=== PATIENT | female | born 1960 | race Caucasian/White ===

== ENCOUNTER → 2018-04-21 16:11 | Outpatient (CLI) | payer OTHER, SELFPAY ==
--- NOTE | 2018-04-21 16:14 | DI.MRI.S_ITS ---
PROCEDURE: MRFOOT LT WO CON INDICATIONS: LEFT FOOT AND BIG TOE PAIN TECHNIQUE: Noncontrast sagittal T1 spin echo and T2 fast spin echo with fat saturation, long-axis T1 spin echo and T2 fast spin echo with fat saturation, short-axis T1 spin echo and T2 fast spin echo with fat saturation through the forefoot. COMPARISON: None. FINDINGS: Image quality: Excellent. Bones and joints: No bone marrow contusions or metatarsal stress fractures. The sesamoid bones appear in expected positions, without internal edema. Mild first MTP joint degeneration. Fluid is seen between the second and fourth metatarsal heads, as well as the second and third metatarsal heads to a lesser extent. There is mild second TMT joint degeneration Soft tissues: The visualized plantar foot muscles demonstrate normal signal and bulk. Visualized flexor and extensor tendons appear intact, without tenosynovitis. The distal insertions of the peroneus brevis and longus tendons appear intact. The principal Lisfranc ligament appears intact. There is ill-defined T2 hyperintensity/fluid or edema involving the plantar subcutaneous soft tissues at the level of the hallux sesamoids. IMPRESSION: Plantar subcutaneous soft tissue fluid versus edema raising the possibility of adventitial bursitis, superficial and adjacent to the hallux sesamoids (which themselves demonstrate normal signal). Fluid between the third and fourth, and to a lesser extent second and third, metatarsal heads raising possibility of intermetatarsal bursitis. Please correlate clinically. Mild first MTP joint degeneration. Dictated by: Dwight Negron M.D. on 04/22/2018 at 9:48 Approved by: Dwight Negron M.D. on 04/22/2018 at 10:01
--- NOTE | 2018-04-21 16:14 | DI.MRI.S_ITS ---
PROCEDURE: MR ANKLE LT WO CON INDICATIONS: LATERAL LEFT ANKLE PAIN AND SWELLING TECHNIQUE: Noncontrast sagittal T1 spin echo and T2 fast spin echo with fat saturation, axial proton density fast spin echo and T2 fast spin echo with fat saturation, coronal T1 spin echo and T2 fast spin echo with fat saturation through the ankle/hindfoot. COMPARISON: [facility], MR, MR FOOT LT WO CON, 04/21/2018, 17:24. FINDINGS: Image quality: Excellent. Bones and joints: No bone marrow contusions or fractures. No hindfoot coalitions. No osteochondral injuries of the talar dome. No pathologic joint effusions. Medial structures: The posterior tibialis, flexor digitorum longus, and flexor hallucis longus tendons are intact. There is minimal fluid adjacent to the posterior tibialis tendon in keeping with tenosynovitis. The posterior tibial neurovascular bundle appears normal within the tarsal tunnel, without extrinsic mass effect. The deep layer of the deltoid ligament complex is not well seen suggestive of chronic sprain given the absence of acute edema. The spring ligament components (superomedial calcaneonavicular, medioplantar oblique calcaneonavicular, and inferoplantar longitudinal ligaments) are intact. Lateral structures: The anterior talofibular ligament is intact although mildly thickened suggestive of chronic sprain given the absence of adjacent soft tissue edema. There is also mild thickening of the calcaneofibular ligament. Mild superficial fascial fluid and subcutaneous edema overlying the distal fibula/lateral malleolus Posterior talofibular ligament appears intact. More superiorly, the anterior and posterior tibiofibular ligaments appear intact, as is the intermalleolar ligament. The tibiofibular syndesmosis is normal in width at 2 mm or less. The peroneus longus and brevis tendons demonstrate normal location and morphology. However there is minimal adjacent fluid suggesting low-grade tenosynovitis. Adjacent bony peroneal tubercle and retrotrochlear prominence are normal in size. The sinus tarsi demonstrates normal fatty signal, without edema, fibrosis, or cyst formation. Visualized sinus tarsi components (cervical ligament, interosseous talocalcaneal ligament, roots of the inferior extensor retinaculum) appear normal. The calcaneonavicular and calcaneocuboid components of the bifurcate ligament appear intact. The dorsal calcaneocuboid ligament appears intact. Anterior structures: The tibialis anterior, extensor hallucis longus, and extensor digitorum longus tendons appear intact. Although there is mild adjacent superficial fascial fluid/edema The dorsal talonavicular ligament appears intact. Posterior and plantar structures: Achilles tendon is intact although demonstrates low signal thickening centered approximately 5 cm above the calcaneal attachment. There is severe thickening and internal signal change involving the medial band plantar fascia (image 8 series 6), with high-grade partial versus complete rupture. IMPRESSION: Severe medial band plantar fasciitis, with suspected high-grade partial versus complete rupture near the calcaneal attachment. 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 Probably chronic sprain of the anterior talofibular ligament and calcaneofibular ligament. Posterior tibialis and low-grade peroneal tenosynovitis Nonspecific superficial fascial fluid and edema adjacent to the anterior/extensor tendons, as well as overlying the distal fibula. Please correlate clinically. Chronic sprain of the deep fibers of the deltoid ligament complex. Dictated by: Dwight Negron M.D. on 04/22/2018 at 9:23 Approved by: Dwight Negron M.D. on 04/22/2018 at 9:37
--- NOTE | 2018-04-21 16:14 | DI.MRI.S_ITS ---
PROCEDURE: MR FOOT RT WO CON INDICATIONS: RIGHT FOOT PAIN TECHNIQUE: Noncontrast sagittal T1 spin echo and T2 fast spin echo with fat saturation, long-axis T1 spin echo and T2 fast spin echo with fat saturation, short-axis T1 spin echo and T2 fast spin echo with fat saturation through the forefoot. COMPARISON: [facility], MR, FOOT WITHOUT CONTRAST, 09/18/2015, 19:04. FINDINGS: Image quality: Excellent. Bones and joints: No bone marrow contusions or metatarsal stress fractures. The sesamoid bones appear in expected positions, without internal edema. No metatarsophalangeal joint degeneration. No intraosseous lesions. Soft tissues: The posterior most rome T2 section demonstrates possible enlargement of the medial bundle of the plantar fascia, with internal and surrounding T2 signal elevation. This is seen only one image however. The visualized plantar foot muscles demonstrate otherwise normal signal and bulk. Visualized flexor and extensor tendons appear intact, without tenosynovitis. The distal insertions of the peroneus brevis and longus tendons appear intact. The principal Lisfranc ligament appears intact. No soft tissue ganglion cysts. Small amount of fluid between the 1st and 2nd metatarsal is unchanged. Sagittal images demonstrate no evidence for plantar plate tears. IMPRESSION: 1. Incomplete visualization of the plantar fascia. Findings suggestive of medial bundle plantar fasciitis. This could be confirmed with right ankle MRI, if clinically indicated. 2. Mild intermetatarsal bursitis at the 1st interspace, as before. Dictated by: Awilda Bush M.D. on 04/22/2018 at 8:55 Approved by: Awilda Bush M.D. on 04/22/2018 at 8:58
== END ==
PROVIDERS: Visit Provider Podiatrist
DX: M79.671 Pain in right foot (principal); M79.672 Pain in left foot; M25.572 Pain in left ankle and joints of left foot; M77.51 Other enthesopathy of right foot and ankle; M72.2 Plantar fascial fibromatosis; M65.872 Other synovitis and tenosynovitis, left ankle and foot; M19.072 Primary osteoarthritis, left ankle and foot; S93.422A Sprain of deltoid ligament of left ankle, initial encounter
CPT/HCPCS: 73718; 73721

== ENCOUNTER → 2023-09-16 12:02 | Outpatient (CLI) | payer OTHER, SELFPAY ==
--- NOTE | 2023-09-16 | DI.US.S_ITS ---
PROCEDURE: US PELVIC COMPLETE INDICATIONS: Incomplete uterovaginal prolapse TECHNIQUE: Real-time scanning was performed of the pelvic organs, with image documentation. Additional endovaginal scanning was necessary due to incomplete visualization of the adnexal and endometrial structures by transabdominal scanning. COMPARISON: None. FINDINGS: Uterus: Uterus is anteverted and normal in size at 6.2 x 4.9 x 3.3 cm. The myometrium is mildly heterogeneous with questionable posterior left myometrial fibroid change. The endometrium measures three mm combined thickness. No suspicious increased vascularity. Grossly normal cervix. Ovaries: Neither ovary was seen. No suspicious adnexal masses. Other: No pathologic free abdominal or pelvic fluid. IMPRESSION: Mildly heterogeneous uterus with normal thickness endometrium. We strive to produce accurate, complete, and clear reports of imaging services. To assist us in improving patient care, this report was composed using standard report templates and voice recognition software. Therefore, it may contain abnormal punctuation, insertions and/or omissions. Occasional wrong-word or sound-alike substitutions may occur. Though we review the report and make efforts to correct it, we do recommend that the report be read carefully in proper context to recognize any text inaccuracies. Dictated by: Jordyn Bhakta M.D. on 09/16/2023 at 17:18 Approved by: Jordyn Bhakta M.D. on 09/16/2023 at 17:22
== END ==
PROVIDERS: Referring Provider Obstetrics & Gynecology Gynecology; Visit Provider Obstetrics & Gynecology Gynecology
DX: N81.2 Incomplete uterovaginal prolapse (principal)
CPT/HCPCS: 76830; 76856